=== PATIENT | female | born 1960 | race Caucasian/White ===

== ENCOUNTER 2023-09-13 17:56 | Inpatient (IN) | payer BC, SELFPAY ==
[2023-09-13] VITALS (10 sets, daily range): BP systolic 122–172; BP diastolic 47–109; BMI 28.5; BMI 29.7
[2023-09-13 12:32] LABS: % Basophils 0.4 % (0-2); % Eosinophils 1.5 % (0-6); % Immature Granulocytes 0.3 % (0-0.5); % Lymphocytes 11.4 % (20.5-51.1); % Monocytes 6.4 % (1.7-9.3); Absolute Basophils 0.1 10^3/uL (0-0.2); Absolute Eosinophils 0.2 10^3/uL (0-0.7); Absolute Immature Granulocytes 0.1 10^3/uL (0-0.05); Absolute Lymphocytes 1.7 10^3/uL (1.2-3.4); Absolute Monocytes 0.9 10^3/uL (0.1-0.6); Absolute Neutrophils 11.7 10^3/uL (1.4-6.5); Hematocrit 38.2 % (37.0-47.0); Hemoglobin 13.4 g/dL (12.0-16.0); Mean Corp Hgb Conc. 35.1 g/dL (33.0-37.0); Mean Corpuscular Hgb 30.8 pg (27.0-31.0); Mean Corpuscular Volume 87.8 fL (81.0-99.0); Mean Platelet Volume 9.3 fL (7.4-10.4); Nucleated Red Blood Cells % 0 %; Platelet Count 310 10^3/uL (130-400); Red Blood Cell Count 4.35 10^6/uL (4.20-5.40); Red Cell Dist. Width 12.3 % (11.5-14.5); White Blood Cell Count 14.6 10^3/uL (4.8-10.8)
[2023-09-13 12:38] LABS: ALT (SGPT) 38 U/L (0-35); AST (SGOT) 49 U/L (14-36); Albumin 4.4 g/dl (3.5-5.0); Alkaline Phosphatase 75 U/L (38-126); Blood Urea Nitrogen 16 mg/dl (7-17); Calcium 10.2 mg/dl (8.4-10.2); Carbon Dioxide 22 mmol/L (22-30); Chloride 106 mmol/L (98-107); Glucose 116 mg/dl (70-99); Potassium 4.1 mmol/L (3.5-5.1); Sodium 137 mmol/L (135-145); Total Bilirubin 0.5 mg/dl (0.2-1.3); Total Protein 7.2 g/dl (6.3-8.2); eGFR > 60.00
[2023-09-13 12:49] LABS: Troponin I < 0.012 ng/ml
--- NOTE | 2023-09-13 13:53 | ED.GENMED ---
History of Present Illness
<DEMETRIO Jacob - Last Filed: 09/13/23 17:15>
General
Chief Complaint: Chest Pain
Source: patient
Exam Limitations: none
Time Seen by Provider: 09/13/23 13:35
Nursing documentation reviewed up to this point in time: agreed with
History of Present Illness
History of Present Illness:
62 yr . old female presents to the ED with complaints of upper abd pain/epigastric pain. Patient reports this pain started at 10 AM and then she started vomiting. She is nauseous with this and has been vomiting. She denies any radiation. She
denies any shortness of breath. She has no cardiac history. Patient presents very comfortable. She reports she has had some indigestion in the past ever since starting Zepbound for the past 9 weeks. This however has never been this intense.
Review of Systems
<DEMETRIO Jacob - Last Filed: 09/13/23 17:15>
Review of Systems
Allergies reviewed?: Yes
All Other Systems: ROS reviewed and negative except as documented in HPI and ROS
Constitutional: Reports no symptoms; Denies fever
Respiratory: Reports no symptoms
Cardiac: Reports no symptoms
ABD/GI: Reports abdominal pain, nausea and vomiting; Denies diarrhea or constipated
Musculoskeletal: Reports no symptoms
Skin: Reports no symptoms
Neurological: Reports no symptoms
Psychiatric: Reports no symptoms
Phy Exam
<DEMETRIO Jacob - Last Filed: 09/13/23 17:15>
General Physical Exam
General Presentation: moderate distress
General age: appears stated age
General Skin: warm and dry
General Habitus: normal
General Mental: alert
General Hydration: appears well hydrated
Gastrointestinal Exam
Gastrointestinal Exam: soft and other (tender epigastric region )
Neurological Exam
Neurological Exam: alert and oriented x3
Musculoskeletal Exam
Musculoskeletal Exam: full ROM
Skin Exam
Skin Exam: normal color and warm/dry
Psychiatric Exam
Psychiatric Exam: normal mood/affect
Scores
<DEMETRIO Jacob - Last Filed: 09/13/23 17:15>
Heart Score for Chest Pain Patients
STEMI patient?: Not applicable
Course
<DEMETRIO Jacob - Last Filed: 09/13/23 17:15>
Orders/Labs/Results
Orders:
Orders
09/13/23 11:59
Electrocardiogram (*1) Urgent
Reason for Study: Chest Pain
EKG- Treatment ONCE
09/13/23 12:19
Complete Blood Count/With Diff Urgent
Comprehensive Metabolic Panel Urgent
Lipase Urgent
Comment: LIPASE ADDED ON BY FLOOR 3PM 09-13-23
Troponin I Urgent
09/13/23 13:53
Famotidine [Pepcid] 20 mg IV NOW STA
Ondansetron Injectable [Zofran] 4 mg IV NOW STA
09/13/23 14:35
HYDROmorphone [Dilaudid] 0.5 mg IV NOW STA
Ondansetron Injectable [Zofran] 4 mg IV NOW STA
09/13/23 15:02
Add On- LAB Urgent
Comments:: in lab
Tests Added?: lipase
09/13/23 15:04
Add On- LAB Urgent
Tests Added?: lipase
09/13/23 15:05
CT Abd/Pel (IV only)-[facility] only Urgent
Comment:
Reason For Exam: upper abd pain
09/13/23 16:19
HYDROmorphone [Dilaudid] 0.5 mg IV NOW STA
Abnormal Lab Results
09/13/23
12:19
WBC 14.6 H 10^3/uL
(4.8-10.8)
Abs Immat Gran (auto) 0.1 H 10^3/uL
(0-0.05)
Absolute Neuts (auto) 11.7 H 10^3/uL
(1.4-6.5)
Absolute Monos (auto) 0.9 H 10^3/uL
(0.1-0.6)
Neutrophils % 80.0 H %
(42.2-75.2)
Lymphocytes % 11.4 L %
(20.5-51.1)
Glucose 116 H mg/dl
(70-99)
AST 49 H U/L
(14-36)
ALT 38 H U/L
(0-35)
Lipase > 4000 H* U/L
(23-300)
09/13/23 12:19
09/13/23 12:19
Vital Signs
Initial and Last Documented VS:
Initial Vital Signs
Temp Pulse Resp BP Pulse Ox
98.2 F 80 20 152/80 99
09/13/23 12:08 09/13/23 12:08 09/13/23 12:08 09/13/23 12:08 09/13/23 12:08
Last Documented Vital Signs
Temp Pulse Resp BP Pulse Ox
98.2 F 73 16 159/92 98
09/13/23 12:08 09/13/23 16:06 09/13/23 16:06 09/13/23 16:05 09/13/23 16:06
Stave Cutting Supervisor consulted with Physician
Stave Cutting Supervisor consulted with physician?: Yes
Name of Physician Consulted: Ej
<Nina Pagan, DO - Last Filed: 09/13/23 15:29>
Orders/Labs/Results
Orders:
Orders
09/13/23 11:59
Electrocardiogram (*1) Urgent
Reason for Study: Chest Pain
EKG- Treatment ONCE
09/13/23 12:19
Complete Blood Count/With Diff Urgent
Comprehensive Metabolic Panel Urgent
Lipase Urgent
Comment: LIPASE ADDED ON BY FLOOR 3PM 09-13-23
Troponin I Urgent
09/13/23 13:53
Famotidine [Pepcid] 20 mg IV NOW STA
Ondansetron Injectable [Zofran] 4 mg IV NOW STA
09/13/23 14:35
HYDROmorphone [Dilaudid] 0.5 mg IV NOW STA
Ondansetron Injectable [Zofran] 4 mg IV NOW STA
09/13/23 15:02
Add On- LAB Urgent
Comments:: in lab
Tests Added?: lipase
09/13/23 15:04
Add On- LAB Urgent
Tests Added?: lipase
09/13/23 15:05
CT Abd/Pel (IV only)-[facility] only Urgent
Comment:
Reason For Exam: upper abd pain
09/13/23 16:19
HYDROmorphone [Dilaudid] 0.5 mg IV NOW STA
Abnormal Lab Results
09/13/23
12:19
WBC 14.6 H 10^3/uL
(4.8-10.8)
Abs Immat Gran (auto) 0.1 H 10^3/uL
(0-0.05)
Absolute Neuts (auto) 11.7 H 10^3/uL
(1.4-6.5)
Absolute Monos (auto) 0.9 H 10^3/uL
(0.1-0.6)
Neutrophils % 80.0 H %
(42.2-75.2)
Lymphocytes % 11.4 L %
(20.5-51.1)
Glucose 116 H mg/dl
(70-99)
AST 49 H U/L
(14-36)
ALT 38 H U/L
(0-35)
Lipase > 4000 H* U/L
(23-300)
09/13/23 12:19
09/13/23 12:19
Vital Signs
Initial and Last Documented VS:
Initial Vital Signs
Temp Pulse Resp BP Pulse Ox
98.2 F 80 20 152/80 99
09/13/23 12:08 09/13/23 12:08 09/13/23 12:08 09/13/23 12:08 09/13/23 12:08
Last Documented Vital Signs
Temp Pulse Resp BP Pulse Ox
98.2 F 73 16 159/92 98
09/13/23 12:08 09/13/23 16:06 09/13/23 16:06 09/13/23 16:05 09/13/23 16:06
<DEMETRIO Jacob - Last Filed: 09/13/23 17:15>
MDM/Problems Addressed
Differential Diagnosis Includes:
Not limited to reflux and gastritis ulcer perforated ulcer pancreatitis biliary colic cholecystitis
MDM/Problems Addressed:
Patient is a 62-year-old female who presented to the ER with epigastric pain associate with nausea and vomiting. She is pretty uncomfortable on exam actively vomiting very tender throughout the epigastric area no cardiac history no findings on EKG.
Case discussed with Dr. Pagan who evaluated patient bedside patient is on Zepbound . With symptoms of upper abdominal pain and vomiting will CT check lipase for possible pancreatitis. Patient medicated for nausea, pain.
1700: Patient feeling much better lipase is greater than 4000. CAT scan does confirm pancreatitis , will require admission
<DEMETRIO Jacob - Last Filed: 09/13/23 17:15>
*Pulse Oximetry
Patient hypoxic: no
*EKG
Interpreted by ED Provider?: Yes
Heart Rate: 70
Rate: normal
Rhythm: sinus
Ischemia: no ischemia
*Critical Care Note
Total Time (30-74mins, 75-104mins- exclusive of procedures): Not Applicable
ED Attending Note
<DEMETRIO Jacob - Last Filed: 09/13/23 17:15>
-
Portions of this chart may have been created with voice recognition software.� Occasional wrong word or��sound alike� substitutions may have occurred due to the inherent limitations of voice recognition software.
<Nina Pagan DO - Last Filed: 09/13/23 15:29>
ED Attending Note
Patient seen and examined by attending physician: Yes
I performed the substantive portion of visit, reviewed & personally made and approve the management plan that is documented in note by myself or FAITH.: Yes
I performed a history and physical exam of patient and discussed management with resident, I reviewed resident's note and agree with documented findings and plan of care.: Yes
ED Attending Note:
Patient seen and evaluated at bedside. 62-year-old female with history of hypertension presenting for acute onset of upper abdominal pain. Notes that symptoms started this morning with associated nausea and vomiting. Reports that the pain is in
her chest and epigastric region. Denies known cardiac history. Denies ever having this severe pain in the past. Patient is on zepbound for weight loss. Denies fever. Vital signs on arrival significant for hypertension, however appears very
uncomfortable on exam.
EKG obtained on patient's arrival, nonischemic, no evidence of STEMI. Overall benign cardiac and pulmonary exam. On abdominal exam, moderately tender to the epigastric region. Patient actively retching. Suspected gastric pathology versus acute
pancreatitis, possibly secondary to medication reaction from Zepbound. Plan for antiemetics, pain control, laboratory analysis, CT abdominal imaging.
15:00 -troponin within normal limits, blood pressure improved. Lower suspicion for aortic pathology such as dissection. Again focally tender to epigastric region with higher suspicion for GI pathology. Pending lipase and CT imaging
Discharge Plan
Departure
Patient Disposition: Admit
Date of Disposition: 09/13/23
Time of Disposition: 17:12
Admit to: Med/Surg
Admit to doctor: hospitalist
Presentation/result/management discussed w/ accepting MD/DO: Hospitalist
Patient with high blood pressure during this ER visit?: Yes
Condition: Fair
Covid-19: Not Applicable
Discharge Problem:
Acute pancreatitis
Prescriptions:
No Action
loperamide 2 mg Capsule
4 mg PO BIDPRN PRN (Reason: DIARRHEA)
fluoxetine [Prozac] 20 mg Capsule
20 mg PO DAILY
bupropion HCl [Wellbutrin XL] 300 mg Tablet Extended Release 24 Hr
300 mg PO DAILY
omeprazole 20 mg Tablet,Delayed Release (Dr/Ec)
20 mg PO DAILY
Zepbound 5 mg/0.5 mL Pen Injector
5 mg SC MO
Losartan
1 tab PO DAILY
Referrals:
Eve Cervantes MD [Family Provider] -
Interventions
Interventions:
*Risk Screen - Suicide Last Done: 09/13/23 12:08
*General Assessment Last Done: 09/13/23 13:34
*Neglect/Abuse Screening Last Done: 09/13/23 12:08
ED- Fall Risk Assessment Last Done: 09/13/23 13:34
*ED COVID-19 Vaccine History Last Done: 09/13/23 12:08
ED- Cardiac Assessment Last Done: 09/13/23 13:34
Discharge Date and Time
Print Language: ITALIAN
[2023-09-13] MEDS: ZOFRAN 4 MG IV ×2 (13:56→14:58)
[2023-09-13] MEDS: PEPCID 20 MG IV (14:00)
[2023-09-13] MEDS: DILAUDID 0.5 MG IV ×4 (15:01→23:54)
[2023-09-13 16:04] LABS: Lipase > 4000 U/L (23-300)
--- NOTE | 2023-09-13 16:27 | PHANOTE ---
MED REC NOTE- FAMILY RUNNING HOME TO GET PATIENT MEDICATION BOTTLES . PATIENT NOT IN [facility] AND NO PHARMACY RECORDS
--- NOTE | 2023-09-13 17:48 | HPS.HSE ---
Family Physician
-
Family Physician: Eve Cervantes
Chief Complaint
-
Epigastric abdominal pain
History of Present Illness
62-year-old female with abrupt onset of epigastric abdominal pain this morning. Pain was characterized as sharp in nature, mildly pleuritic. No significant radiation. Has never had the symptoms before.
No shortness of breath. Pain improved in the emergency room with IV Dilaudid. Also had episode of vomiting.
Denies history of pancreatitis.
Last drink of alcohol was more than 1 week ago. Only drinks socially.
Has had loose stools ever since her partial colectomy 2 years ago for diverticulosis.
Loose stools worsened after starting tirzepatide 9 weeks ago for weight loss. Dose was increased recently to 5 mg from 2.5 mg.
Medical History
Past Medical History
Past Medical History: Reports Other
Additional Past Medical History:
Essential hypertension
Diverticulosis requiring partial colectomy and transient colostomy with subsequent reversal
Past Surgical History: Reports Bowel Resection
Social History
Tobacco: Non-smoker
Alcohol: Occasional
Drug: None
Living: With Family
Family History
Family History: Not pertinent
Allergies / Home Medications
Allergies reflects when Allergies were last updated in [facility].
Home Medications with original date entered in [facility]
Allergy/Medication List:
Allergies
Allergy/AdvReac Type Severity Reaction Status Date / Time
Penicillins Allergy Rash Verified 09/13/23 12:14
codeine AdvReac Nausea / Verified 09/13/23 12:14
Vomiting
doxycycline AdvReac Nausea / Verified 09/13/23 12:14
Vomiting
Home Medications
Losartan 1 tab PO DAILY 09/13/23
bupropion HCl 300 mg 24 hr tablet, extended release (Wellbutrin XL) 300 mg PO DAILY 09/13/23
fluoxetine 20 mg capsule (Prozac) 20 mg PO DAILY 09/13/23
loperamide 2 mg capsule 4 mg PO BIDPRN PRN DIARRHEA 09/13/23
omeprazole 20 mg tablet,delayed release 20 mg PO DAILY 09/13/23
tirzepatide (weight loss) 5 mg/0.5 mL subcutaneous pen injector (Zepbound) 5 mg SC MO 09/13/23
Review of Systems
-
History Source: Patient
A 12 point ROS was completed and negative except as noted: Yes
Abdomen/GI: Reports Abdominal Pain, Nausea, Vomiting and Diarrhea
Physical Exam
Vital Signs
Vital Signs
Temp Pulse Resp BP Pulse Ox
98.2 F 73 16 159/92 98
09/13/23 12:08 09/13/23 16:06 09/13/23 16:06 09/13/23 16:05 09/13/23 16:06
Physical Exam
General: Well Developed, Well Nourished, No Apparent Distress and Comfortable
HEENT: NormoCephalic, Anicteric and Moist mucous membranes
Respiratory: Clear
Cardiac: S1/S2 and Regular Rhythm
Breast: Deferred by me
GI: Soft, Non Distended and Tender (Tender epigastric and right upper quadrant without guarding or rebound)
Genito-urinary: Deferred by me
Musculoskeletal: No Clubbing, No Cyanosis and No Edema
Skin: Warm and Dry
Neuro: AO x 3
Hematologic/Lymphatic: No Lymphadenopathy
Psych: Calm
Laboratory Results
-
09/13/23 12:19
09/13/23 12:19
Laboratory Results
Total Bilirubin 0.5 mg/dl (0.2-1.3) 09/13/23 12:19
AST 49 U/L (14-36) H 09/13/23 12:19
ALT 38 U/L (0-35) H 09/13/23 12:19
Alkaline Phosphatase 75 U/L (38-126) 09/13/23 12:19
Troponin I < 0.012 ng/ml 09/13/23 12:19
Lipase > 4000 U/L (23-300) H* 09/13/23 12:19
Impression/Plan
-
Acute pancreatitis -hemodynamically stable. Admit to [facility]. CT scan of abdomen/pelvis reviewed. No focal collection noted. Top normal common bile duct, no intrahepatic ductal dilation.
N.p.o., IV fluids. Continue analgesics, antiemetics. This is her first episode of pancreatitis.
Etiology of pancreatitis suspected to be due to tirzepatide. Moving forward, patient plans to discontinue use.
Will check triglyceride level.
Mild transaminase elevation noted.
Essential hypertension -on losartan at home, please clarify dose.
Diverticulosis
Full code
[2023-09-13] MEDS: LR 1000 IV ×2 (18:47→20:05)
[2023-09-13] MEDS: COMPAZINE 10 MG IV (20:02)
--- NOTE | 2023-09-13 20:48 | PTCARENOTE ---
Pt transported from ED to 3W via stretcher. Pt independent from stretcher to bed, vitals obtained, oriented to room and call wolf within reach. Pt AAOX3, will continue to monitor.
[2023-09-13] MEDS: LOVENOX 40 MG SC (21:33)
[2023-09-14] MEDS: DILAUDID 0.5 MG IV ×2 (03:09→08:19)
[2023-09-14] MEDS: LR 1000 IV ×3 (03:10→19:58)
[2023-09-14 07:00] VITALS: BP 118/67
[2023-09-14] MEDS: PROZAC 20 MG PO (08:10)
[2023-09-14] MEDS: WELLBUTRIN XL (24 hour extended release) 300 MG PO (08:10)
--- NOTE | 2023-09-14 09:57 | PTCARENOTE ---
pt c/o right frontal headache 07/28. spoke with Dr. Mullins requesting current Tylenol order PRN reason to be changed to temp or moderate pain. He agreed, will continue to monitor.
--- NOTE | 2023-09-14 10:07 | PTCARENOTE ---
at 09, pt received Dilaudid at 0819, pain decreased from 10/10 to 7/10. reports Dilaudid not lasting 3 hours. I communicated this to Dr. Oliver and requested either to increase Dilaudid dose or change frequency? at 09, Dr. Mullins responded
that he would increase dose. patient made aware, will continue to monitor.
[2023-09-14 10:18] LABS: % Basophils 0.2 % (0-2); % Eosinophils 0.2 % (0-6); % Immature Granulocytes 0.4 % (0-0.5); % Lymphocytes 7.3 % (20.5-51.1); % Monocytes 7.1 % (1.7-9.3); % Neutrophils 84.8 % (42.2-75.2); Absolute Immature Granulocytes 0.1 10^3/uL (0-0.05); Absolute Lymphocytes 0.8 10^3/uL (1.2-3.4); Absolute Monocytes 0.8 10^3/uL (0.1-0.6); Absolute Neutrophils 9.6 10^3/uL (1.4-6.5); Hematocrit 34.5 % (37.0-47.0); Hemoglobin 11.7 g/dL (12.0-16.0); Mean Corp Hgb Conc. 33.9 g/dL (33.0-37.0); Mean Corpuscular Hgb 30.9 pg (27.0-31.0); Mean Platelet Volume 9.7 fL (7.4-10.4); Nucleated Red Blood Cells % 0 %; Platelet Count 276 10^3/uL (130-400); Red Blood Cell Count 3.79 10^6/uL (4.20-5.40); Red Cell Dist. Width 12.7 % (11.5-14.5); White Blood Cell Count 11.3 10^3/uL (4.8-10.8)
[2023-09-14] MEDS: TYLENOL 650 MG PO ×2 (10:19→20:08)
[2023-09-14] MEDS: DILAUDID 1 MG IV ×3 (10:23→19:59)
[2023-09-14 10:41] LABS: ALT (SGPT) 55 U/L (0-35); AST (SGOT) 57 U/L (14-36); Albumin 3.5 g/dl (3.5-5.0); Alkaline Phosphatase 69 U/L (38-126); Blood Urea Nitrogen 14 mg/dl (7-17); Carbon Dioxide 27 mmol/L (22-30); Chloride 103 mmol/L (98-107); Estimated Creatinine Clearance 89 ml/min; Glucose 73 mg/dl (70-99); HDL Cholesterol 70 mg/dl; LDL Cholesterol, Calculated 89 mg/dl; Potassium 3.7 mmol/L (3.5-5.1); Sodium 136 mmol/L (135-145); Total Bilirubin 0.6 mg/dl (0.2-1.3); Total Cholesterol 170 mg/dl (50-199); Triglyceride 57 mg/dl (10-149); Very Low Density Lipoprotein 11 mg/dl (0-30); eGFR > 60.00
--- NOTE | 2023-09-14 11:23 | PTCARENOTE ---
mid epigastric pain 5/10 and headache pain 3/10, will continue to monitor.
[2023-09-14] MEDS: LR IV (11:53)
--- NOTE | 2023-09-14 12:20 | W.PN.HOSP.TC ---
Today's Communication/Plan
-
MRCP
IVF
Analgesics
Assessment / Plan
Assessment / Plan
Gen-AAOx3, NAD
HEENT-NC, AT, anicteric, clear oral mm
Neck-supple
CV-reg, no M, +S1/S2
Lungs-clear B/L
Abd-soft, tender epigastric area, nondistended
Ext-no edema
Musculoskeletal-no cyanosis, clubbing
Skin-warm and dry
Neuro-grossly non-focal
Psych-calm, cooperative
Acute pancreatitis -differential diagnosis includes gallstone pancreatitis versus medication induced. Gallstone noted in GB, mild biliary sludge, no pericholecystic fluid. CBD top normal, 6mm.
Check MRCP, rule out CBD stone. GI consult. Patient is claustrophobic and will require sedation with MRCP.
Pain increased today, Dilaudid dose increased to 1 mg as needed.
NPO, continue IVF.
Essential hypertension -on losartan at home, please clarify dose.
Diverticulosis
Full code
updated at bedside.
Anticipated Discharge: > 48 hours
Subjective/Interval History
-
Date of Service: September 14, 2023
Patient seen/examined, still with significant abdominal pain.
Objective Data
-
Labs:
Laboratory Results
09/14/23
08:37
WBC 11.3 H
Hgb 11.7 L
Hct 34.5 L
Plt Count 276
Sodium 136
Potassium 3.7
Chloride 103
Carbon Dioxide 27
BUN 14
Creatinine 0.6
Glucose 73
Calcium 9.0
Total Bilirubin 0.6
AST 57 H
ALT 55 H
Alkaline Phosphatase 69
Vital Signs:
Vital Signs
Temp Pulse Resp BP Pulse Ox
98.1 F 87 17 118/67 95
09/14/23 07:00 09/14/23 07:00 09/14/23 07:00 09/14/23 07:00 09/14/23 07:00
Review of Systems
-
History Source: Patient
All other systems: Reviewed and negative
--- NOTE | 2023-09-14 13:48 | CON.GI ---
Consultation
-
Date/Time Consultation Requested: 09/14/23
Date/Time Consultation Performed: 09/14/23
Requesting Provider: Dr. Mullins
Performing Provider: Dr. Welch
Reason for Consultation: Acute Pancreatitis
Medical History
Chief Complaint / HPI
Chief Complaint: Epigastric pain
History of Present Illness:
Gardenia is a 62-year-old female with past medical history of diverticular disease status post partial colectomy and transient colostomy with subsequent reversal and HTN admitted to on 09/12 with complaints of acute epigastric pain found to have acute
pancreatitis. Initial labs with lipase elevated to >4000, AST 49, ALT 38, alk phos 75, tibili 0.5. CT shows acute interstitial pancreatitis, Ultrasound similar shows findings consistent wtih pancreatitis, cholelithiasis w/o evidence of acute
cholecystitis and no evidence of biliary ductal dilatation. Patient denies prior episodes of pancreatitis. She admits to social alcohol consumption, last drink was approximately 1 week ago. She denies family history of pancreatic ca or pancreatitis.
She reports recent dose increase of Zepbound. She admits to loose stool since starting Zepbound, slightly less since dose increase. Prior surgeries and colonoscopies at [facility], no records available for review.
Past Medical History
Past Medical History: HTN and Other (Diverticulitis)
Past Surgical History: Tonsilectomy and Other (partial colectomy)
Social History
Tobacco: Non-Smoker
Alcohol: Occasional
Drug: None
Personal:
Living: With Family
Family History
Family History: Reviewed & Not Pertinent
Allergies / Home Medications
Allergy/AdvReac Type Severity Reaction Status Date / Time
Penicillins Allergy Rash Verified 09/13/23 12:14
codeine AdvReac Nausea / Verified 09/13/23 12:14
Vomiting
doxycycline AdvReac Nausea / Verified 09/13/23 12:14
Vomiting
�Medication �Instructions �Recorded
Losartan 1 tab PO DAILY 09/13/23
bupropion HCl 300 mg 24 hr tablet, 300 mg PO DAILY 09/13/23
extended release (Wellbutrin XL)
fluoxetine 20 mg capsule (Prozac) 20 mg PO DAILY 09/13/23
loperamide 2 mg capsule 4 mg PO BIDPRN PRN DIARRHEA 09/13/23
omeprazole 20 mg tablet,delayed 20 mg PO DAILY 09/13/23
release
tirzepatide (weight loss) 5 mg/0.5 5 mg SC MO 09/13/23
mL subcutaneous pen injector
(Zepbound)
Review of Systems
-
History Source: Patient
All other systems: A 12 pt ROS was Negative except as stated above in HPI
Vital Signs
Temp Pulse Resp BP Pulse Ox
98.1 F 87 17 118/67 95
09/14/23 07:00 09/14/23 07:00 09/14/23 07:00 09/14/23 07:00 09/14/23 07:00
Physical Exam
Exam
GENERAL: In no acute distress, appears comfortable
ABDOMEN: +BS; soft, tender to palpation in RUQ and epigastrium, no rebound or gaurding
Results
WBC 11.3 10^3/uL (4.8-10.8) H 09/14/23 08:37
Hgb 11.7 g/dL (12.0-16.0) L 09/14/23 08:37
Hct 34.5 % (37.0-47.0) L 09/14/23 08:37
MCV 91.0 fL (81.0-99.0) 09/14/23 08:37
Plt Count 276 10^3/uL (130-400) 09/14/23 08:37
Absolute Neuts (auto) 9.6 10^3/uL (1.4-6.5) H 09/14/23 08:37
Sodium 136 mmol/L (135-145) 09/14/23 08:37
Potassium 3.7 mmol/L (3.5-5.1) 09/14/23 08:37
Chloride 103 mmol/L (98-107) 09/14/23 08:37
Carbon Dioxide 27 mmol/L (22-30) 09/14/23 08:37
BUN 14 mg/dl (7-17) 09/14/23 08:37
Creatinine 0.6 mg/dL (0.6-1.0) 09/14/23 08:37
Calcium 9.0 mg/dl (8.4-10.2) 09/14/23 08:37
Total Bilirubin 0.6 mg/dl (0.2-1.3) 09/14/23 08:37
AST 57 U/L (14-36) H 09/14/23 08:37
ALT 55 U/L (0-35) H 09/14/23 08:37
Alkaline Phosphatase 69 U/L (38-126) 09/14/23 08:37
Lipase > 4000 U/L (23-300) H* 09/13/23 12:19
Diagnostic Image Results:
Prior GI Procedures: Prior procedures performed at [facility], no records available for review
EGD:
Colonoscopy:
Assessment / Plan
-
62-year-old female with past medical history of diverticular disease status post partial colectomy and HTN admitted with first episode of acute pancreatitis.
Acute Pancreatitis--suspect gallstone pancreatitis vs. medication-induced pancreatitis
-Meets 3/3 criteria
-Lipase >4000
-MRI/MRCP pending
-currently getting LR @ 120 cc/hr
-Tirzepatide is unlikely to cause acute pancreatitis, however, some case reports
-triglycerides nml
-diet NPO for MRI, okay to advance to clear liquids following
-antiemetics, analgesia, prn
-t/c surgical consult, depending on clinical course/findings from MRI
Data Reviewed
-
CT Scan: Report Reviewed by me
Ultrasound: Report Reviewed by me
-
-
Thank you for consultation and allowing me to participate in the patient's care. Please call the chief of field operations GI physician during the after hours with any questions or concerns.
[2023-09-14 15:00] VITALS: BP 117/71
[2023-09-14] MEDS: LOVENOX 40 MG SC (17:45)
[2023-09-14 23:00] VITALS: BP 125/75
[2023-09-15] MEDS: DILAUDID 1 MG IV ×4 (02:48→21:38)
[2023-09-15] MEDS: LR 1000 IV ×3 (02:50→21:40)
[2023-09-15 06:21] VITALS: BMI 31.1
--- NOTE | 2023-09-15 06:34 | PTCARENOTE ---
The 120 ml of oral fluids were from ice chips.
[2023-09-15 07:38] VITALS: BP 116/77
[2023-09-15] MEDS: TORADOL 30 MG IV ×2 (07:47→17:32)
[2023-09-15] MEDS: WELLBUTRIN XL (24 hour extended release) 300 MG PO (07:48)
[2023-09-15] MEDS: PROZAC 20 MG PO (07:48)
--- NOTE | 2023-09-15 08:33 | W.PN.HOSP.TC ---
Addendum entered and electronically signed by Subhash Mullins DO 09/15/23 11:32:
MRCP completed, showing acute interstitial edematous pancreatitis without overt complication. Cholelithiasis noted, normal biliary tree without choledocholithiasis.
Clear liquid diet started.
On Saturday plan to consult general surgery for opinion on timing of cholecystectomy.
Original Note:
Today's Communication/Plan
-
Await MRCP
Add Toradol
Assessment / Plan
Assessment / Plan
Gen-AAOx3, NAD
HEENT-NC, AT, anicteric, clear oral mm
Neck-supple
CV-reg, no M, +S1/S2
Lungs-clear B/L
Abd-soft, tender epigastric area, nondistended
Ext-no edema
Musculoskeletal-no cyanosis, clubbing
Skin-warm and dry
Neuro-grossly non-focal
Psych-calm, cooperative
Acute pancreatitis -differential diagnosis includes gallstone pancreatitis versus medication induced. Gallstone noted in GB, mild biliary sludge, no pericholecystic fluid. CBD top normal, 6mm.
Check MRCP, rule out CBD stone. GI consult. Patient is claustrophobic and will require sedation with MRCP.
Add IV Toradol for pain. Continue Dilaudid.
Essential hypertension -on losartan at home, please clarify dose.
Diverticulosis
Full code
Anticipated Discharge: > 48 hours
Subjective/Interval History
-
Date of Service: September 15, 2023
Patient seen and examined. Still with persistent epigastric abdominal pain.
Objective Data
-
Vital Signs:
Vital Signs
Temp Pulse Resp BP Pulse Ox
98.0 F 95 18 116/77 96
09/15/23 07:38 09/15/23 07:38 09/15/23 07:38 09/15/23 07:38 09/15/23 07:38
I&O
09/14/23 09/15/23 09/16/23
06:59 06:59 06:59
Intake Total 2199
Balance 2199
Review of Systems
-
History Source: Patient
All other systems: Reviewed and negative
[2023-09-15 08:45] VITALS: BP 135/73
[2023-09-15] MEDS: ATIVAN 0.5 MG PO (09:28)
--- NOTE | 2023-09-15 10:25 | W.PN.GI.CBS2 ---
Today's Communication / Plan
-
f/u MRI
Assessment / Plan
-
62-year-old female with past medical history of diverticular disease status post partial colectomy and HTN admitted with first episode of acute pancreatitis.
Acute Pancreatitis--suspect gallstone pancreatitis vs. medication-induced pancreatitis
-Meets 3/3 criteria
-Lipase >4000
-LFTs: Tbili/alk phos nml, AST 59 --> 57, ALT 38 --> 55
-MRI/MRCP pending
-currently getting LR @ 80 cc/hr
-Tirzepatide is unlikely to cause acute pancreatitis, however, some case reports
-triglycerides nml
-diet NPO for MRI
-antiemetics, analgesia, prn
-t/c surgical consult, depending on clinical course/findings from MRI
Subjective
Subjective
Date of Service: September 15, 2023
Patient seen in follow-up this morning, continues to complain of severe epigastric pain, feels it in her chest/sternum as well. MRI/MRCP pending this morning.
Objective
Data Reviewed
Laboratory Data:
Laboratory Results
09/14/23 08:37
09/14/23 08:37
Laboratory Results
Total Bilirubin 0.6 mg/dl (0.2-1.3) 09/14/23 08:37
AST 57 U/L (14-36) H 09/14/23 08:37
ALT 55 U/L (0-35) H 09/14/23 08:37
Alkaline Phosphatase 69 U/L (38-126) 09/14/23 08:37
Lipase > 4000 U/L (23-300) H* 09/13/23 12:19
Vital Signs and I&O:
Vital Signs
Temp Pulse Resp BP Pulse Ox
98.0 F 101 18 135/73 97
09/15/23 08:45 09/15/23 08:45 09/15/23 08:45 09/15/23 08:45 09/15/23 08:45
I&O
09/14/23 09/15/23 09/16/23
06:59 06:59 06:59
Intake Total 2199 / 2199
Balance 2199 / 2199
Physical Exam
Physical Exam
GENERAL: In no acute distress, appears comfortable
ABDOMEN: +BS; soft, nondistended, pain in epigastrium and RUQ with palpation, voluntary guarding
--- NOTE | 2023-09-15 14:51 | CM ---
Reviewed chart, met with patient to obtain information for assessment. Patient stated that she lives with her spouse in a two story townhouse with one step to enter. Her bedroom is on the first floor. Patient described herself as independent with
her ADLs, personal care, dressing and bathing. She ambulates without the use of an assistive device. 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 Patient drives and can get to her appointments and do all of her own
shopping.
Patient denied DME in her home.
She had VN services in the past through [place] after a surgery.
Patient has a prescription plan and uses, [facility] for all of her medications.
Her PCP is, Eve Cervantes.
Patient stated that she feels she is at baseline level of functioning and can return home when stable.
Plan: Case management will continue to follow and assist with discharge planning. Home when cleared.
[2023-09-15 15:18] VITALS: BP 132/71
[2023-09-15] MEDS: FLUSH (NSS) 2 FLUSH IV (15:54)
[2023-09-15] MEDS: LOVENOX 40 MG SC (17:31)
[2023-09-15 23:20] VITALS: BP 136/70
[2023-09-16] MEDS: TORADOL 30 MG IV ×2 (02:59→09:49)
[2023-09-16 05:52] VITALS: BMI 31.5
[2023-09-16 07:00] VITALS: BP 154/88
--- NOTE | 2023-09-16 07:30 | W.PN.HOSP.TC ---
Today's Communication/Plan
-
Suspected gallstone pancreatitis
Surgery to evaluate for lap ramona
Assessment / Plan
Assessment / Plan
Physical Exam
Gen-AAOx3, NAD
HEENT-NC, AT, anicteric, clear oral mm
Neck-supple
CV-reg, no M, +S1/S2
Lungs-clear B/L
Abd-soft, tender epigastric area, nondistended
Ext-no edema
Musculoskeletal-no cyanosis
Skin-warm and dry
Neuro-grossly non-focal
Psych-anxious
Assessment/Plan
Acute pancreatitis - differential diagnosis includes gallstone pancreatitis versus medication induced. Gallstone noted in GB, mild biliary sludge, no pericholecystic fluid. CBD top normal, 6mm.
MRCP noted with gallbladder stones. GI consult. General surgery consulted for lap ramona evaluation.
Constipation?
-Last BM was on 09/13/23, as per patient
-Check abdominal x-ray
Essential hypertension - continue home Losartan.
Diverticulosis with history of colostomy reversal, follows at [place]
Full code
Anticipated Discharge: > 48 hours
Subjective/Interval History
-
Date of Service: September 16, 2023
Patient was seen and examined. She reported that she still has epigastric pain, which is improved from before.
Objective Data
-
Vital Signs:
Vital Signs
Temp Pulse Resp BP Pulse Ox
98.4 F 103 18 136/70 95
09/15/23 23:20 09/15/23 23:20 09/15/23 23:20 09/15/23 23:20 09/15/23 23:20
I&O
09/15/23 09/16/23 09/17/23
06:59 06:59 06:59
Intake Total 0 / 2200 1829 / 1829
Balance 2200 / 2200 1829 / 183
--- NOTE | 2023-09-16 07:38 | W.PN.UPDATE ---
Update Note
Progress Note Update
Reviewed MRCP, no evidence of choledocholithiasis. Continue supportive care, advance diet as tolerated, IVF, antiemetics, analgesia prn. Surgical consult for cholecystectomy.
GI will sign off, please call with questions.
[2023-09-16] MEDS: PROZAC 20 MG PO (07:54)
[2023-09-16] MEDS: WELLBUTRIN XL (24 hour extended release) 300 MG PO (07:54)
--- NOTE | 2023-09-16 09:45 | PTCARENOTE ---
Assumed care of pt. Pt oob in chair. Pt tearful. Pain reported /. Personal items and call light light within reach. All needs met.
--- NOTE | 2023-09-16 11:24 | CON.GS ---
Consultation
-
Date/Time Consultation Performed: 09/16/2023 11:15
Performing Provider: Levar Aparicio MD ; Armando Haskins MD
Reason for Consultation: Gallstone pancreatitis
Medical History
-
Chief Complaint: Epigastric pain
History of Present Illness:
62-year-old female with known medical history of diverticular disease, s/p partial colectomy and transient colostomy with subsequent reversal in 2021 presented with complaints of acute epigastric pain and further evaluation and blood work consistent
with acute pancreatitis as lipase levels were more than 4000. Patient denied similar episodes in the past. CT shows acute interstitial pancreatitis, ultrasound of findings were consistent with pancreatitis, no evidence of acute cholecystitis and
no evidence of biliary duct obstruction/dilation. MRCP confirmed the above findings. Patient reportedly drinks alcohol socially and her last drink was more than 7 days before coming to the hospital. She denied any history of pancreatic disease in
her family. Patient reports she has been using Tirzepatide for weight loss and her dose was recently increased. Previously she was following up at [facility] for GI problems.
Past Medical History
Past Medical History: HTN and Other (Diverticulitis)
Past Surgical History: Tonsilectomy and Other (Partial colectomy and transient colostomy with subsequent reversal.)
Social History
Tobacco: Non-Smoker
Alcohol: Occasional
Drug: None
Personal:
Living: With Family
Family History
Family History: Reviewed & Not Pertinent
Allergies / Home Medications
Allergy/AdvReac Type Severity Reaction Status Date / Time
Penicillins Allergy Rash Verified 09/13/23 12:14
codeine AdvReac Nausea / Verified 09/13/23 12:14
Vomiting
doxycycline AdvReac Nausea / Verified 09/13/23 12:14
Vomiting
�Medication �Instructions �Recorded �Confirmed �Type
Losartan 50 mg PO DAILY Blood Pressure 09/13/23 09/15/23 History
bupropion HCl 300 mg 24 hr tablet, 300 mg PO DAILY Depression 09/13/23 09/13/23 History
extended release (Wellbutrin XL)
fluoxetine 20 mg capsule (Prozac) 20 mg PO DAILY Depression 09/13/23 09/13/23 History
loperamide 2 mg capsule 4 mg PO BIDPRN PRN DIARRHEA 09/13/23 09/13/23 History
omeprazole 20 mg tablet,delayed 20 mg PO DAILY Gastrointestinal 09/13/23 09/13/23 History
release Issue
tirzepatide (weight loss) 5 mg/0.5 5 mg SC MO WEIGHT LOSS 09/13/23 09/13/23 History
mL subcutaneous pen injector
(Zepbound)
Review of Systems
-
History Source: Patient
Abdomen/GI: Abdominal Pain
A 10 point review of systems was completed, and was negative except as per HPI.
Physical Exam
Vital Signs
Temp Pulse Resp BP Pulse Ox
97.8 F 94 16 154/88 98
09/16/23 07:00 09/16/23 07:00 09/16/23 07:00 09/16/23 07:00 09/16/23 07:00
09/15/23 09/16/23 09/17/23
06:59 06:59 06:59
Actual Weight 77.02 kg 78.154 kg
Body Mass Index (BMI) 31.5
Lab Results
WBC 11.3 10^3/uL (4.8-10.8) H 09/14/23 08:37
Hgb 11.7 g/dL (12.0-16.0) L 09/14/23 08:37
Hct 34.5 % (37.0-47.0) L 09/14/23 08:37
Plt Count 276 10^3/uL (130-400) 09/14/23 08:37
Abs Immat Gran (auto) 0.1 10^3/uL (0-0.05) H 09/14/23 08:37
Neutrophils % 84.8 % (42.2-75.2) H 09/14/23 08:37
Physical Exam
General: Well Developed and Well Nourished
HEENT: Normocephalic and Anicteric
Respiratory: Clear
Cardiac: Regular Rhythm
GI: Soft, Non Distended, Normal Bowel Sounds and Tender (Mild right upper quadrant and epigastric tenderness, no guarding, no rebound, negative Vaughan sign.)
Skin: Warm and Dry
Neuro: Awake, Alert and Oriented
Psych: Calm
Data Reviewed
-
CT Scan: Report Reviewed by me
Ultrasound: Report Reviewed by me
MRI: Report Reviewed by me
Labs: Labs Reviewed by me, Discussed with Physician and Discussed with Patient
Total Time Spent with Patient (in minutes): 25
Assessment / Plan
-
62-year-old female with past medical history of diverticular disease status post partial colectomy admitted with first episode of acute pancreatitis.
#Acute Pancreatitis--suspect gallstone pancreatitis vs. medication-induced pancreatitis-less likely per GI
- Lipase >4000, slight elevation of LFTs on admission
- MRCP: Acute interstitial edematous pancreatitis without overt complication.Cholelithiasis. Normal biliary tree without evidence for choledocholithiasis.
- S/p 2 bags of LR and currently on clear liquid diet.
- Pain: Now 3/10, was 10/10 on admission
- Continue as needed pain meds
- Consideration for laparoscopic cholecystectomy
[2023-09-16 12:18] LABS: % Basophils 0.2 % (0-2); % Eosinophils 2.8 % (0-6); % Immature Granulocytes 0.5 % (0-0.5); % Lymphocytes 9.7 % (20.5-51.1); % Monocytes 7.9 % (1.7-9.3); % Neutrophils 78.9 % (42.2-75.2); Absolute Eosinophils 0.3 10^3/uL (0-0.7); Absolute Immature Granulocytes 0.1 10^3/uL (0-0.05); Absolute Lymphocytes 1.1 10^3/uL (1.2-3.4); Absolute Monocytes 0.9 10^3/uL (0.1-0.6); Absolute Neutrophils 9.2 10^3/uL (1.4-6.5); Hematocrit 30.3 % (37.0-47.0); Hemoglobin 10.6 g/dL (12.0-16.0); Mean Corpuscular Volume 88.6 fL (81.0-99.0); Mean Platelet Volume 9.6 fL (7.4-10.4); Nucleated Red Blood Cells % 0 %; Platelet Count 225 10^3/uL (130-400); Red Blood Cell Count 3.42 10^6/uL (4.20-5.40); Red Cell Dist. Width 12.5 % (11.5-14.5); White Blood Cell Count 11.7 10^3/uL (4.8-10.8)
[2023-09-16] MEDS: COZAAR 50 MG PO (12:31)
[2023-09-16 12:45] LABS: ALT (SGPT) 31 U/L (0-35); AST (SGOT) 31 U/L (14-36); Albumin 3.3 g/dl (3.5-5.0); Alkaline Phosphatase 74 U/L (38-126); Blood Urea Nitrogen 8 mg/dl (7-17); Calcium 8.9 mg/dl (8.4-10.2); Carbon Dioxide 27 mmol/L (22-30); Chloride 103 mmol/L (98-107); Estimated Creatinine Clearance 92 ml/min; Glucose 81 mg/dl (70-99); Potassium 3.4 mmol/L (3.5-5.1); Sodium 135 mmol/L (135-145); Total Bilirubin 0.6 mg/dl (0.2-1.3); Total Protein 5.7 g/dl (6.3-8.2); eGFR > 60.00
[2023-09-16] MEDS: PROTONIX 40 MG PO (13:34)
[2023-09-16 15:00] VITALS: BP 161/88
[2023-09-16] MEDS: LOVENOX 40 MG SC (17:37)
[2023-09-16] MEDS: COMPAZINE 10 MG IV (20:22)
[2023-09-16] MEDS: DILAUDID 1 MG IV (20:22)
[2023-09-16] MEDS: KCL 40 MEQ PO (21:19)
[2023-09-16] MEDS: TUMS 1 TABLET PO (21:19)
[2023-09-16 23:00] VITALS: BP 126/79
[2023-09-17 07:42] LABS: % Basophils 0.4 % (0-2); % Eosinophils 6.2 % (0-6); % Immature Granulocytes 0.5 % (0-0.5); % Lymphocytes 16.7 % (20.5-51.1); % Monocytes 7.7 % (1.7-9.3); % Neutrophils 68.5 % (42.2-75.2); Absolute Eosinophils 0.5 10^3/uL (0-0.7); Absolute Lymphocytes 1.3 10^3/uL (1.2-3.4); Absolute Monocytes 0.6 10^3/uL (0.1-0.6); Absolute Neutrophils 5.5 10^3/uL (1.4-6.5); Hematocrit 30.3 % (37.0-47.0); Hemoglobin 10.4 g/dL (12.0-16.0); Mean Corp Hgb Conc. 34.3 g/dL (33.0-37.0); Mean Corpuscular Hgb 31.1 pg (27.0-31.0); Mean Corpuscular Volume 90.7 fL (81.0-99.0); Mean Platelet Volume 9.8 fL (7.4-10.4); Nucleated Red Blood Cells % 0 %; Platelet Count 241 10^3/uL (130-400); Red Blood Cell Count 3.34 10^6/uL (4.20-5.40); Red Cell Dist. Width 12.5 % (11.5-14.5)
[2023-09-17 07:43] VITALS: BP 142/81
[2023-09-17 07:49] LABS: ALT (SGPT) 26 U/L (0-35); AST (SGOT) 25 U/L (14-36); Alkaline Phosphatase 66 U/L (38-126); Blood Urea Nitrogen 7 mg/dl (7-17); Calcium 8.9 mg/dl (8.4-10.2); Carbon Dioxide 29 mmol/L (22-30); Chloride 106 mmol/L (98-107); Estimated Creatinine Clearance 92 ml/min; Glucose 82 mg/dl (70-99); Potassium 3.9 mmol/L (3.5-5.1); Sodium 139 mmol/L (135-145); Total Bilirubin 0.5 mg/dl (0.2-1.3); Total Protein 5.3 g/dl (6.3-8.2); eGFR > 60.00
[2023-09-17] MEDS: PROTONIX 40 MG PO (08:09)
[2023-09-17] MEDS: COZAAR 50 MG PO (08:09)
[2023-09-17] MEDS: PROZAC 20 MG PO (08:09)
[2023-09-17] MEDS: WELLBUTRIN XL (24 hour extended release) 300 MG PO (08:09)
--- NOTE | 2023-09-17 09:16 | W.PN.GS2 ---
Addendum entered and electronically signed by Gary Mc MD 09/17/23 10:15:
Patient seen and examined.
Improving epigastric pain/discomfort. Required IV pain medications overnight for severe pain. No nausea or vomiting. No fevers.
Gen: NAD
Abd: soft, obese, mild tenderness to palpation in epigastrium, ND, non-peritoneal, midline incision well healed
Patient is a 62-year-old female with past medical history of diverticular disease status post partial colectomy 2021 admitted with first episode of acute pancreatitis.
#Acute Pancreatitis - suspect gallstone pancreatitis vs. medication-induced pancreatitis (less likely per GI)
Lipase >4000, slight elevation of LFTs on admission
MRCP: Acute interstitial edematous pancreatitis without overt complication. Cholelithiasis. Normal biliary tree without evidence for choledocholithiasis.
Natural history and pathophysiology of biliary stone disease has been reviewed. Role of cholecystectomy and preventing future episodes of pancreatitis was reviewed. Timing of cholecystectomy TBD, pending resolution of abdominal pain. All
questions answered.
- Continue current clear liquid diet, NPO PM for possible procedure
- Continue as needed pain meds
- Will reevaluate tomorrow
Original Note:
Today's Communication / Plan
-
Continue clear diet
Reevaluation tomorrow for consideration of laparoscopic cholecystectomy
Assessment / Plan
-
62-year-old female with past medical history of diverticular disease status post partial colectomy 2021 admitted with first episode of acute pancreatitis.
#Acute Pancreatitis--suspect gallstone pancreatitis vs. medication-induced pancreatitis-less likely per GI
- Lipase >4000, slight elevation of LFTs on admission
- MRCP: Acute interstitial edematous pancreatitis without overt complication. Cholelithiasis. Normal biliary tree without evidence for choledocholithiasis.
- S/p 2 bags of LR and recommendations to continue current clear liquid diet
- Continue as needed pain meds
- Will reevaluate tomorrow
- Consideration for laparoscopic cholecystectomy once pain subsided to prevent any potential future episodes.
Patient verified understanding. All questions answered.
Time Spent
Total Time Spent with Patient (in minutes): 15
Subjective Data
-
Date of Service: September 17, 2023
Less abdominal pain and distention. No nausea or vomiting. No fevers.
Objective Data
-
Intake and Output
09/16/23 09/17/23 09/18/23
06:59 06:59 06:59
Intake Total 1830 / 1830 780 / 780
Balance 1830 / 1830 780 / 780
Intake:
Oral fluids 870 / 870 540 / 540
IV fluids (Total) 960 / 960 240 / 240
Other:
Number of approximated MODERATE 2 2
amounts of urine
Vital Signs
Temp Pulse Resp BP Pulse Ox
97.9 F 74 14 142/81 97
09/17/23 07:43 09/17/23 08:09 09/17/23 07:43 09/17/23 08:09 09/17/23 07:43
Lab Results
09/17/23 06:40
09/17/23 06:40
Calcium 8.9 mg/dl (8.4-10.2) 09/17/23 06:40
Magnesium 2.0 mg/dl (1.6-2.3) 09/17/23 06:40
Total Bilirubin 0.5 mg/dl (0.2-1.3) 09/17/23 06:40
AST 25 U/L (14-36) 09/17/23 06:40
ALT 26 U/L (0-35) 09/17/23 06:40
Alkaline Phosphatase 66 U/L (38-126) 09/17/23 06:40
Total Protein 5.3 g/dl (6.3-8.2) L 09/17/23 06:40
Albumin 3.0 g/dl (3.5-5.0) L 09/17/23 06:40
Physical Exam
-
General: Well Developed and Well Nourished
HEENT: Normocephalic and Anicteric
RESP: Nonlabored breathing on room air
GI: Soft, Non Distended, Normal Bowel Sounds and Mild right upper quadrant and epigastric tenderness, no guarding, no rebound, negative Vaughan sign
Skin: Warm and Dry
Neuro: Awake, Alert and Oriented
Psych: Calm
--- NOTE | 2023-09-17 13:53 | W.PN.HOSP.TC ---
Today's Communication/Plan
-
Laparoscopic cholecystectomy possibly tomorrow
Bowel regimen
Assessment / Plan
Assessment / Plan
Physical Exam
Gen-AAOx3, NAD
HEENT-NC, AT, anicteric, clear oral mm
Neck-supple
CV-reg, no M, +S1/S2
Lungs-clear B/L
Abd-soft, mildly tender epigastric area, nondistended
Ext-no edema
Musculoskeletal-no cyanosis
Skin-warm and dry
Neuro-grossly non-focal
Psych-anxious
Assessment/Plan
Acute pancreatitis - differential diagnosis includes gallstone pancreatitis versus medication induced. Gallstone noted in GB, mild biliary sludge, no pericholecystic fluid. CBD top normal, 6mm.
MRCP noted with gallbladder stones. GI consult. General surgery consulted for lap cholecystectomy evaluation -- possibly tomorrow.
Constipation
-Last BM was on 09/13/23, as per patient
-Abdominal x-ray with mild colonic stool burden and mild stomach gas
-Bowel regimen started; continue
Essential hypertension - continue home Losartan.
Diverticulosis with history of colostomy reversal, follows at [place]
Full code
Anticipated Discharge: > 48 hours
Subjective/Interval History
-
Date of Service: September 17, 2023
Patient was seen and examined. She reported she needed pain medication last night for left upper abdominal pain, overall this morning her pain has improved and she is feeling better.
Objective Data
-
Labs:
Laboratory Results
09/17/23
06:40
WBC 8.0
Hgb 10.4 L
Hct 30.3 L
Plt Count 241
Sodium 139
Potassium 3.9
Chloride 106
Carbon Dioxide 29
BUN 7
Creatinine 0.6
Glucose 82
Calcium 8.9
Total Bilirubin 0.5
AST 25
ALT 26
Alkaline Phosphatase 66
Vital Signs:
Vital Signs
Temp Pulse Resp BP Pulse Ox
97.9 F 74 14 142/81 97
09/17/23 07:43 09/17/23 08:09 09/17/23 07:43 09/17/23 08:09 09/17/23 07:43
I&O
09/16/23 09/17/23 09/18/23
06:59 06:59 06:59
Intake Total 18290 780 / 780
Balance 1829 / 1829 780 / 780
[2023-09-17 15:00] VITALS: BP 138/84
[2023-09-17] MEDS: MIRALAX 17 GRAMS PO (15:07)
[2023-09-17] MEDS: TUMS 1 TABLET PO (15:07)
[2023-09-17] MEDS: LOVENOX 40 MG SC (17:59)
[2023-09-17] MEDS: DILAUDID 1 MG IV (20:46)
[2023-09-17] MEDS: SENOKOT-S 1 TABLET PO (20:47)
[2023-09-17 23:12] VITALS: BP 134/84
[2023-09-18] VITALS (10 sets, daily range): BP systolic 114–148; BP diastolic 62–105; BMI 31.5
--- NOTE | 2023-09-18 06:05 | PTCARENOTE ---
Rec'd patient at 0300. Patient resting in bed comfortably. Call wolf within reach. Plan of care ongoing.
--- NOTE | 2023-09-18 06:53 | W.PN.GS2 ---
Today's Communication / Plan
-
Robotic cholecystectomy today
Assessment / Plan
-
62-year-old female with past medical history of diverticular disease status post partial colectomy 2021 admitted with first episode of acute pancreatitis.
#Acute Pancreatitis--suspect gallstone pancreatitis vs. medication-induced pancreatitis-less likely per GI
- Lipase >4000, slight elevation of LFTs on admission
- MRCP: Acute interstitial edematous pancreatitis without overt complication. Cholelithiasis. Normal biliary tree without evidence for choledocholithiasis.
- S/p 2 bags of LR and tolerated clear liquid diet. NPOpMN
- Continue as needed pain meds
- Plan for Robotic assisted laparoscopic cholecystectomy today to prevent any potential future episodes.
Natural history and pathophysiology of biliary stone disease has been reviewed. Role of cholecystectomy and preventing future episodes of pancreatitis was reviewed. Discussed the possible intra and post operative complications in her case given her
previous abdominal surgeries/scars.
Patient verified understanding. All questions answered.
Time Spent
Total Time Spent with Patient (in minutes): 20
Subjective Data
-
Date of Service: September 18, 2023
Significant improvement in abdominal pain and distention. No nausea or vomiting. No fevers. Last bowel movement more than 5 Days ago
Objective Data
-
Intake and Output
09/16/23 09/17/23 09/18/23
06:59 06:59 06:59
Intake Total 1830 / 1830 780 / 780 1220 / 1220
Balance 1830 / 1830 780 / 780 1220 / 1220
Intake:
Oral fluids 870 / 870 540 / 540 1200 / 1200
IV fluids (Total) 960 / 960 240 / 240
IV piggybacks
Other:
Number of approximated MODERATE 2 2 1
amounts of urine
Vital Signs
Temp Pulse Resp BP Pulse Ox
98.9 F 78 18 134/84 95
09/17/23 23:12 09/17/23 23:12 09/17/23 23:12 09/17/23 23:12 09/17/23 23:12
Calcium 8.9 mg/dl (8.4-10.2) 09/17/23 06:40
Magnesium 2.0 mg/dl (1.6-2.3) 09/17/23 06:40
Total Bilirubin 0.5 mg/dl (0.2-1.3) 09/17/23 06:40
AST 25 U/L (14-36) 09/17/23 06:40
ALT 26 U/L (0-35) 09/17/23 06:40
Alkaline Phosphatase 66 U/L (38-126) 09/17/23 06:40
Total Protein 5.3 g/dl (6.3-8.2) L 09/17/23 06:40
Albumin 3.0 g/dl (3.5-5.0) L 09/17/23 06:40
Physical Exam
-
General: Well Developed and Well Nourished
HEENT: Normocephalic and Anicteric
RESP: Nonlabored breathing on room air
GI: Soft, Non Distended, Normal Bowel Sounds and No right upper quadrant and minimal epigastric tenderness today, no guarding, no rebound, negative Vaughan sign
Skin: Warm and Dry
Neuro: Awake, Alert and Oriented
Psych: Calm
[2023-09-18 07:15] LABS: % Basophils 0.5 % (0-2); % Eosinophils 4.9 % (0-6); % Immature Granulocytes 0.5 % (0-0.5); % Lymphocytes 17.8 % (20.5-51.1); % Monocytes 9.2 % (1.7-9.3); % Neutrophils 67.1 % (42.2-75.2); Absolute Eosinophils 0.4 10^3/uL (0-0.7); Absolute Lymphocytes 1.5 10^3/uL (1.2-3.4); Absolute Monocytes 0.8 10^3/uL (0.1-0.6); Absolute Neutrophils 5.5 10^3/uL (1.4-6.5); Hematocrit 30.5 % (37.0-47.0); Hemoglobin 10.4 g/dL (12.0-16.0); Mean Corp Hgb Conc. 34.1 g/dL (33.0-37.0); Mean Corpuscular Hgb 30.7 pg (27.0-31.0); Mean Platelet Volume 9.3 fL (7.4-10.4); Nucleated Red Blood Cells % 0 %; Platelet Count 279 10^3/uL (130-400); Red Blood Cell Count 3.39 10^6/uL (4.20-5.40); Red Cell Dist. Width 12.6 % (11.5-14.5); White Blood Cell Count 8.1 10^3/uL (4.8-10.8)
[2023-09-18 07:30] LABS: ALT (SGPT) 24 U/L (0-35); AST (SGOT) 23 U/L (14-36); Albumin 3.1 g/dl (3.5-5.0); Alkaline Phosphatase 67 U/L (38-126); Blood Urea Nitrogen 5 mg/dl (7-17); Carbon Dioxide 29 mmol/L (22-30); Chloride 105 mmol/L (98-107); Estimated Creatinine Clearance 92 ml/min; Glucose 87 mg/dl (70-99); Potassium 3.8 mmol/L (3.5-5.1); Sodium 138 mmol/L (135-145); Total Bilirubin 0.4 mg/dl (0.2-1.3); Total Protein 5.7 g/dl (6.3-8.2); eGFR > 60.00
[2023-09-18] MEDS: SENOKOT-S 1 TABLET PO (08:12)
[2023-09-18] MEDS: PROTONIX 40 MG PO (08:12)
[2023-09-18] MEDS: PROZAC 20 MG PO (08:12)
[2023-09-18] MEDS: MIRALAX 17 GRAMS PO (08:12)
[2023-09-18] MEDS: WELLBUTRIN XL (24 hour extended release) 300 MG PO (08:12)
[2023-09-18] MEDS: COZAAR 50 MG PO (08:12)
--- NOTE | 2023-09-18 11:19 | W.PN.HOSP.TC ---
Today's Communication/Plan
-
Lap ramona today
Assessment / Plan
Assessment / Plan
Physical Exam
Gen-AAOx3, NAD
HEENT-NC, AT, anicteric, clear oral mm
Neck-supple
CV-reg, no M, +S1/S2
Lungs-clear B/L
Abd-soft, mildly tender epigastric area, nondistended
Ext-no edema
Musculoskeletal-no cyanosis
Skin-warm and dry
Neuro-grossly non-focal
Psych-anxious
Assessment/Plan
Acute pancreatitis - differential diagnosis includes gallstone pancreatitis versus medication induced. Gallstone noted in GB, mild biliary sludge, no pericholecystic fluid. CBD top normal, 6mm.
MRCP noted with gallbladder stones. GI consult. General surgery consulted for lap cholecystectomy evaluation -- scheduled for today.
Constipation
-Last BM was on 09/13/23, as per patient
-Abdominal x-ray with mild colonic stool burden and mild stomach gas
-Bowel regimen started; continue
Essential hypertension - continue home Losartan.
Diverticulosis with history of colostomy reversal, follows at [place]
Full code
Anticipated Discharge: 24 - 48 hours
Subjective/Interval History
-
Date of Service: September 18, 2023
Patient was seen and examined. She denied any abdominal pain or any other symptoms.
Objective Data
-
Labs:
Laboratory Results
09/18/23
06:43
WBC 8.1
Hgb 10.4 L
Hct 30.5 L
Plt Count 279
Sodium 138
Potassium 3.8
Chloride 105
Carbon Dioxide 29
BUN 5 L
Creatinine 0.6
Glucose 87
Calcium 9.0
Total Bilirubin 0.4
AST 23
ALT 24
Alkaline Phosphatase 67
Vital Signs:
Vital Signs
Temp Pulse Resp BP Pulse Ox
98.2 F 76 16 138/88 96
09/18/23 08:06 09/18/23 08:12 09/18/23 08:06 09/18/23 08:12 09/18/23 08:06
I&O
09/17/23 09/18/23 09/19/23
06:59 06:59 06:59
Intake Total 780 / 780 1220 / 1220
Balance 780 / 780 1220 / 1220
--- NOTE | 2023-09-18 12:00 | PTCARENOTE ---
Patient sent to preop area for planned lap cholecystectomy.
[2023-09-18] MEDS: IC GREEN 2.5 MG IV (13:00)
[2023-09-18] MEDS: STERILE WATER FOR INJECTION 10 ML IV (13:12)
--- NOTE | 2023-09-18 14:11 | OR.RPT ---
Operative Report
Operative Report
Primary Surgeon: Pina
Assisting: Stacia LOVELACE
Pre-op Diagnosis: Biliary pancreatitis
Post-op Diagnosis: Chronic calculous cholecystitis
Procedure Performed: Robot assisted laparoscopic cholecystectomy
Anesthesia Type: GETA
Specimen / Cultures: Gallbladder
Estimated Blood Loss: 15cc
Complications: None immediate
Operative Findings: Minimal fatty adhesions in upper abdomen taken down with blunt sweeps, bowel was not touched; incisions offset to account for adhesions; gallbladder with thickened wall and significant edema
Date of Surgery:� 09/18/23
Indications: This 62F developed biliary pancreatitis. Magnetic resonance imaging showed a patent common duct without choledocholithiasis. Her pancreatitis improved with expectant management. Today her tenderness was resolved. Laparoscopic
cholecystectomy with cholangiogram and with robotic assist was elected.
Description of procedure: The patient was placed on the operating table in the supine position. General anesthesia was induced. A time-out was completed verifying correct patient, procedure, site, positioning, and special equipment prior to
beginning this procedure. An orogastric tube was placed. The abdomen was prepped and draped in the usual sterile fashion. A stab incision was made in left upper quadrant and the Veress needle was inserted. Proper position was confirmed by aspiration
and saline meniscus test. The abdomen was insufflated with carbon dioxide to a pressure of 12mmHg. The patient tolerated insufflation well.
A 8mm trocar was then inserted at the right mid axillary line away from her scars. The laparoscope was inserted and the abdomen inspected. No injuries from initial trocar placement or Veress needle insertion were noted. Additional 8mm trocars were
then inserted in the following locations under direct vision: one additional in the right lower quadrant, one above the umbilicus, and one to the left of the umbilicus and just above. The abdomen was inspected and no abnormalities were found. The
table was placed in the reverse Trendelenburg position with the right side up. The dome of the gallbladder was grasped with an atraumatic grasper and retracted over the dome of the liver. The infundibulum was then grasped with an atraumatic grasper
and retracted toward the right lower quadrant. This maneuver exposed Calot�s triangle. The peritoneum overlying the gallbladder infundibulum was then incised and the cystic duct and cystic artery identified and circumferentially dissected so that a
clear view of the liver was achieved through a window between the cystic duct an cystic artery. At this time, the only two structures going into the gallbladder were the cystic artery and cystic duct.
The cystic duct was then doubly clipped and divided. The cystic artery was controlled with bipolar and divided. The gallbladder was then dissected from its peritoneal attachments by electrocautery. There was wall thickening and significant edema
around the gallbladder. The gallbladder was removed using an endoscopic retrieval bag placed through the umbilical port. The gallbladder was passed off the table as a specimen. The gallbladder fossa was thoroughly irrigated. There was no evidence of
bleeding from the gallbladder fossa or cystic artery or leakage of the bile from the cystic duct stump. The umbilical trocar site was closed at the fascial level with 2-0 PDS. Secondary trocars were removed under direct vision and noted to be
hemostatic. The abdomen was allowed to collapse. The skin was closed with subcuticular sutures of 4-0 monocryl and topical skin adhesive. The orogastric tube was removed.
The patient tolerated the procedure well and was taken to the postanesthesia care unit in stable condition.
The assistance of Stacia LA was required due to the complexity of the procedure. During the procedure she assisted with retraction, resection, and closure of the wound.
[2023-09-18] MEDS: SUBLIMAZE 50 MCG IV ×2 (14:43→15:15)
--- NOTE | 2023-09-18 16:00 | PTCARENOTE ---
Patient s/p lap cholecystectomy. 5 Lap Sites MICHAEL, surgical adhesive CDI. Patient with 7/10 pain, medicated with IV Dilaudid.
[2023-09-18] MEDS: DILAUDID 1 MG IV ×2 (16:06→20:16)
[2023-09-18] MEDS: LOVENOX 40 MG SC (17:44)
[2023-09-18] MEDS: SENOKOT-S PO (20:23)
[2023-09-18] MEDS: ROXICODONE 5 MG PO (22:56)
[2023-09-19] MEDS: DILAUDID 1 MG IV (04:33)
[2023-09-19 06:43] LABS: % Basophils 0.1 % (0-2); % Immature Granulocytes 1.8 % (0-0.5); % Lymphocytes 13.3 % (20.5-51.1); % Monocytes 8.4 % (1.7-9.3); % Neutrophils 76.4 % (42.2-75.2); Absolute Immature Granulocytes 0.2 10^3/uL (0-0.05); Absolute Lymphocytes 1.3 10^3/uL (1.2-3.4); Absolute Monocytes 0.8 10^3/uL (0.1-0.6); Absolute Neutrophils 7.5 10^3/uL (1.4-6.5); Hematocrit 30.3 % (37.0-47.0); Hemoglobin 10.3 g/dL (12.0-16.0); Mean Corpuscular Hgb 31.3 pg (27.0-31.0); Mean Corpuscular Volume 92.1 fL (81.0-99.0); Mean Platelet Volume 9.5 fL (7.4-10.4); Nucleated Red Blood Cells % 0 %; Platelet Count 296 10^3/uL (130-400); Red Blood Cell Count 3.29 10^6/uL (4.20-5.40); Red Cell Dist. Width 12.5 % (11.5-14.5); White Blood Cell Count 9.9 10^3/uL (4.8-10.8)
[2023-09-19 07:03] LABS: ALT (SGPT) 34 U/L (0-35); AST (SGOT) 45 U/L (14-36); Albumin 3.3 g/dl (3.5-5.0); Alkaline Phosphatase 69 U/L (38-126); Blood Urea Nitrogen 12 mg/dl (7-17); Calcium 8.8 mg/dl (8.4-10.2); Carbon Dioxide 26 mmol/L (22-30); Chloride 102 mmol/L (98-107); Estimated Creatinine Clearance 92 ml/min; Glucose 98 mg/dl (70-99); Potassium 4.2 mmol/L (3.5-5.1); Sodium 136 mmol/L (135-145); Total Bilirubin 0.3 mg/dl (0.2-1.3); Total Protein 5.8 g/dl (6.3-8.2); eGFR > 60.00
--- NOTE | 2023-09-19 07:18 | W.PN.GS2 ---
Addendum entered and electronically signed by David Phoenix MD 09/19/23 15:51:
Patient seen in follow-up this afternoon with nurse practitioner, independently of resident evaluation of patient this a.m.
Agree with documented progress note with additions noted here.
Overall patient feels well but continues with localized pain at her 1 robotic site where the gallbladder was extracted. Otherwise mild right-sided abdominal discomfort.
She has tolerated dietary advancement without nausea. Appetite still a bit low.
AF VSS
ABD: Soft, nondistended, tenderness palpation localizing predominantly to 1 robotic surgical site where gallbladder was extracted. Some surrounding light ecchymosis but no hematoma.
A/P: POD #1 status post RAL cholecystectomy
Counseled patient rationale for localizing pain at surgical site where fascial closure was; no hematoma on examination at this time.
Stable for discharge from surgical standpoint
Outpatient follow-up with Dr. Heller for 2-week postop
Original Note:
Today's Communication / Plan
-
Start regular diet
Discharge today
Assessment / Plan
-
62-year-old female postop day #1 status post robot assisted laparoscopic cholecystectomy for cholelithiasis. Past medical history of diverticular disease status post partial colectomy 2021 initially admitted with first episode of acute
pancreatitis.
# Cholelithiasis likely source of acute Pancreatitis
- MRCP: Acute interstitial edematous pancreatitis without overt complication. Cholelithiasis. Normal biliary tree without evidence for choledocholithiasis.
- Starting regular diet today
- Continue as needed pain meds
- Potential discharge later today if able to tolerate diet
All questions answered.
Time Spent
Total Time Spent with Patient (in minutes): 20
Subjective Data
-
Date of Service: September 19, 2023
Some incisional pain. No nausea, + flatus, last BM yesterday
Objective Data
-
Intake and Output
09/18/23 09/19/23 09/20/23
06:59 06:59 06:59
Intake Total 1220 / 1220 1260 / 1260
Balance 1220 / 1220 1260 / 1260
Intake:
Oral fluids 1200 / 1200 960 / 960
IV fluids (Total) 300 / 300
Normosol 300 / 300
IV piggybacks 20 /
Other:
Number of approximated MODERATE 1 2
amounts of urine
Number of approximated LARGE 4
amounts of urine
Vital Signs
Temp Pulse Resp BP Pulse Ox
97.6 F 68 18 121/76 95
09/18/23 23:06 09/18/23 23:06 09/18/23 23:06 09/18/23 23:06 09/18/23 23:06
Lab Results
09/19/23 06:13
09/19/23 06:13
Calcium 8.8 mg/dl (8.4-10.2) 09/19/23 06:13
Magnesium 2.0 mg/dl (1.6-2.3) 09/17/23 06:40
Total Bilirubin 0.3 mg/dl (0.2-1.3) 09/19/23 06:13
AST 45 U/L (14-36) H 09/19/23 06:13
ALT 34 U/L (0-35) 09/19/23 06:13
Alkaline Phosphatase 69 U/L (38-126) 09/19/23 06:13
Total Protein 5.8 g/dl (6.3-8.2) L 09/19/23 06:13
Albumin 3.3 g/dl (3.5-5.0) L 09/19/23 06:13
Physical Exam
-
General: Well developed, no apparent distress
Abdomen: Soft mildly distended, tenderness to palpation at incision sites. No significant guarding or rebound.
[2023-09-19 07:52] VITALS: BP 123/62
[2023-09-19] MEDS: SENOKOT-S PO (09:12)
[2023-09-19] MEDS: COZAAR 50 MG PO (09:12)
[2023-09-19] MEDS: MIRALAX PO (09:12)
[2023-09-19] MEDS: WELLBUTRIN XL (24 hour extended release) 300 MG PO (09:12)
[2023-09-19] MEDS: PROZAC 20 MG PO (09:12)
[2023-09-19] MEDS: PROTONIX 40 MG PO (09:12)
--- NOTE | 2023-09-19 10:40 | W.PN.HOSP.TC ---
Today's Communication/Plan
-
Discharge today
Assessment / Plan
Assessment / Plan
Physical Exam
Gen-AAOx3, NAD
HEENT-NC, AT, anicteric, clear oral mm
Neck-supple
CV-reg, no M, +S1/S2
Lungs-clear B/L
Abd-soft, nontender, nondistended, positive bowel sounds
Ext-no edema
Musculoskeletal-no cyanosis
Skin-warm and dry
Neuro-grossly non-focal
Psych-anxious
Assessment/Plan
Acute pancreatitis -- suspected Biliary Pancreatitis
Chronic calculous cholecystitis
-differential diagnosis includes gallstone pancreatitis versus medication induced. Gallstone noted in GB, mild biliary sludge, no pericholecystic fluid. CBD top normal, 6mm.
MRCP noted with gallbladder stones. GI consult. General surgery consulted for lap cholecystectomy evaluation -- performed on September 19, 2023.
Operative Findings (as per surgeon): 'Minimal fatty adhesions in upper abdomen taken down with blunt sweeps, bowel was not touched; incisions offset to account for adhesions; gallbladder with thickened wall and significant edema'
Constipation
-Last BM was on 09/13/23, as per patient
-Abdominal x-ray with mild colonic stool burden and mild stomach gas
-Bowel regimen started; continue
Essential hypertension - continue home Losartan.
Diverticulosis with history of colostomy reversal, follows at [facility]
Full code
More than 30 minutes spent in discharge including
Final examination of the patient
Summarizing hospital stay
Instructions for continuing care to all relevant caregivers
Preparation of discharge records, prescriptions, and referral forms
Total time spent (in minutes): 36
Anticipated Discharge: Today
Subjective/Interval History
-
Date of Service: September 19, 2023
Patient was seen and examined. She denied any pain or any other significant symptoms or complaints.
Objective Data
-
Labs:
Laboratory Results
09/19/23
06:13
WBC 9.9
Hgb 10.3 L
Hct 30.3 L
Plt Count 296
Sodium 136
Potassium 4.2
Chloride 102
Carbon Dioxide 26
BUN 12
Creatinine 0.6
Glucose 98
Calcium 8.8
Total Bilirubin 0.3
AST 45 H
ALT 34
Alkaline Phosphatase 69
Vital Signs:
Vital Signs
Temp Pulse Resp BP Pulse Ox
97.9 F 58 16 123/62 94
09/19/23 07:52 09/19/23 09:12 09/19/23 07:52 09/19/23 09:12 09/19/23 07:52
I&O
09/18/23 09/19/23 09/20/23
06:59 06:59 06:59
Intake Total 1220 / 1220 1260 / 1260
Balance 1220 / 1220 1260 / 1260
[2023-09-19] MEDS: ROXICODONE 5 MG PO (10:46)
--- NOTE | 2023-09-19 13:55 | CM ---
Reviewed chart, patient still requiring acute level of care. Activity notes detail that she is ambulating independently and providing her own care. She should be able to return home when medically clear.
Plan: Case mangement will continue to follow and assist with discharge planning. Home when stable.
--- NOTE | 2023-09-19 14:35 | W.DS.TRANS ---
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
-
Discharge Instructions:
Discharge Diagnosis/Procedures Acute pancreatitis -- suspected Biliary
Pancreatitis
Chronic calculous cholecystitis status post
laparoscopic cholecystectomy -- Operative
Findings (as per surgeon): 'Minimal fatty
adhesions in upper abdomen taken down with blunt
sweeps, bowel was not touched; incisions offset
to account for adhesions; gallbladder with
thickened wall and significant edema'
Constipation
Essential hypertension
Diverticulosis with history of colostomy
reversal, follows at [facility]
Diet As tolerated
Additional Diets If you have loose stools after surgery, switch
to a low fat diet
Activity No strenuous activity
Additional Activity Do not lift over 15 pounds for the next 2 to 3
weeks
Wound Care The glue over your incisions will flake off in
the next 2-3 weeks on its own. Wash incisions
gently with soap and water in the shower. Do not
soak in a tub or swim until after 7 days.
Call your surgeon if you have worsening
abdominal pain, nausea with vomiting, redness to
your incisions or a temperature >101.
Instructions:
Stand-Alone Forms:
Changes to Home Medications: Yes
Discharge Medications:
DC Medications w/original date entered in [employer]
Losartan 50 mg PO DAILY Blood Pressure 09/13/23
bupropion HCl 300 mg 24 hr tablet, extended release (Wellbutrin XL) 300 mg PO DAILY Depression 09/13/23
fluoxetine 20 mg capsule (Prozac) 20 mg PO DAILY Depression 09/13/23
loperamide 2 mg capsule 4 mg PO BIDPRN PRN DIARRHEA 09/13/23
omeprazole 20 mg tablet,delayed release 20 mg PO DAILY Gastrointestinal Issue 09/13/23
tirzepatide (weight loss) 5 mg/0.5 mL subcutaneous pen injector (Zepbound) 5 mg SC MO WEIGHT LOSS 09/13/23
oxycodone 5 mg tablet 5 - 10 mg (1 - 2 x 5 mg) PO Q4HPRN PRN moderate to severe pain #20 tabs 09/18/23
polyethylene glycol 3350 17 gram oral powder packet (HealthyLax) 17 g PO DAILY #30 ea 09/19/23
sennosides 8.6 mg-docusate sodium 50 mg tablet (Stool Softener-Laxative) 1 tab PO BID #14 tabs 09/19/23
Home Medication Changes
Oxycodone, HealthyLax and Sennosides-Docusate are new medications.
Pending Results: No
Total time spent discharging patient (in min): 36
[2023-09-19] MEDS: ROXICODONE 10 MG PO (14:37)
[2023-09-19 15:28] VITALS: BP 114/59
== END 2023-09-19 16:22 | disposition home or self-care (01) | DRG 418 ==
LOC: 3 WEST ACU 17:56
PROVIDERS: Student in an Organized Health Care Education/Training Program; Surgery; ADMITTING PHYSICIAN Hospitalist; ATTENDING PHYSICIAN Hospitalist; CONSULT PHYSICIAN Internal Medicine; CONSULT PHYSICIAN Surgery; EMERGENCY PHYSICIAN Student in an Organized Health Care Education/Training Program; FAMILY PHYSICIAN Internal Medicine
PROC: 0FT44ZZ Resection of Gallbladder, Percutaneous Endoscopic Approach (ICD-10-PCS; 2023-09-18)
PROC: 8E0W4CZ Robotic Assisted Procedure of Trunk Region, Percutaneous Endoscopic Approach (ICD-10-PCS; 2023-09-18)
DX: K85.10 Biliary acute pancreatitis without necrosis or infection (principal); K80.10 Calculus of gallbladder with chronic cholecystitis without obstruction; I10 Essential (primary) hypertension; F32.A Depression, unspecified; K66.0 Peritoneal adhesions (postprocedural) (postinfection); R74.01 Elevation of levels of liver transaminase levels; K59.00 Constipation, unspecified; Z79.899 Other long term (current) drug therapy; Z90.49 Acquired absence of other specified parts of digestive tract; Z87.19 Personal history of other diseases of the digestive system; Z88.0 Allergy status to penicillin; Z88.1 Allergy status to other antibiotic agents; Z88.5 Allergy status to narcotic agent
CPT/HCPCS: 88304; 74018; 74177; 74181; 76700; 80053; 80061; 83690; 83735; 84484; 85025; 93005; 96374; 96375; 96376; 99285; Q9967

== ENCOUNTER → 2024-05-09 07:25 | Outpatient (REF) | payer MEDICARE, OTHER, SELFPAY | LOC: MRI 3T 07:25 | PROVIDERS: ATTENDING PHYSICIAN Internal Medicine | DX: M54.2 Cervicalgia (principal) | CPT/HCPCS: 72141 ==

== ENCOUNTER → 2024-12-21 09:11 | Outpatient (REF) | payer MEDICARE, OTHER, SELFPAY | LOC: HWRAD 09:11 | PROVIDERS: ATTENDING PHYSICIAN Family Medicine | DX: M85.88 Other specified disorders of bone density and structure, other site (principal) | CPT/HCPCS: 77080 ==

== ENCOUNTER → 2025-01-18 09:05 | Outpatient (REF) | payer MEDICARE, OTHER, SELFPAY | LOC: RCS 09:05 | PROVIDERS: ATTENDING PHYSICIAN Internal Medicine Cardiovascular Disease; FAMILY PHYSICIAN Family Medicine | DX: R00.2 Palpitations (principal); R00.0 Tachycardia, unspecified | CPT/HCPCS: 93306 ==

== ENCOUNTER → 2025-01-26 08:22 | Outpatient (REF) | payer MEDICARE, OTHER, SELFPAY | LOC: RCS 08:22 | PROVIDERS: ATTENDING PHYSICIAN Internal Medicine Cardiovascular Disease; FAMILY PHYSICIAN Family Medicine | DX: R00.0 Tachycardia, unspecified (principal); R00.2 Palpitations | CPT/HCPCS: 93017; 93350 ==